=== PATIENT | female | born 1990 | race American Indian/Alaskan Native ===

== ENCOUNTER 2017-09-25 22:04 | Emergency (ER) | payer SELFPAY ==
[2017-09-25 22:59] VITALS: BP 121/85
[2017-09-26] MEDS ORDERED: TORADOL IM ONE (00:43)
== END 2017-09-26 00:15 | disposition left against medical advice (07) ==
LOC: ED 22:04
DX: R10.9 Unspecified abdominal pain (principal); N89.8 Other specified noninflammatory disorders of vagina; Z53.21 Procedure and treatment not carried out due to patient leaving prior to being seen by health care provider

== ENCOUNTER 2017-09-28 18:06 | Emergency (ER) | payer SELFPAY ==
[2017-09-28 20:26] LABS: Basophils # (Auto) 0.1 K/mm3 (0.0-0.1); Basophils % (Auto) 0.8 % (0.0-1.8); Eosinophils # (Auto) 0.3 K/mm3 (0.0-0.4); Eosinophils % (Auto) 3.3 % (0.0-4.3); Hematocrit 39.4 % (30.3-42.9); Hemoglobin 13.3 gm/dl (10.1-14.3); Lymphocytes # (Auto) 3.3 K/mm3 (1.2-5.4); Lymphocytes % (Auto) 32.6 % (13.4-35.0); Mean Corpuscular HGB Conc 34 % (30-34); Mean Corpuscular Hemoglobin 29 pg (28-32); Mean Corpuscular Volume 85 fl (79-97); Monocytes # (Auto) 0.6 K/mm3 (0.0-0.8); Monocytes % (Auto) 6.3 % (0.0-7.3); Platelet Count 349 K/mm3 (140-440); Red Blood Count 4.62 M/mm3 (3.65-5.03); Red Cell Distribution Width 14.1 % (13.2-15.2)
[2017-09-28 20:35] LABS: BUN/Creatinine Ratio 33; Blood Urea Nitrogen 13 mg/dL (7-17); Calcium 8.5 mg/dL (8.4-10.2); Hemolysis Index 23
[2017-09-28 22:30] LABS: Bacteria,Urine 1+ /HPF (Negative); Bilirubin,Urine NEG (Negative); Blood,Urine SM (Negative); Color,Urine Yellow (Yellow); Mucus,Urine 1+ /HPF
[2017-09-29] MEDS ORDERED: ROCEPHIN IM ONE (00:29)
[2017-09-29] MEDS ORDERED: XYLOCAINE 1% MPF 5 mL INFILTRATI ONE (00:29)
[2017-09-29] MEDS ORDERED: TORADOL IM ONE (00:29)
[2017-09-29] MEDS ORDERED: ZITHROMAX PO ONE (00:30)
--- NOTE | 2017-09-29 00:35 | Emergency Department Report ---
ED Female HPI - General Chief complaint: Abdominal Pain Stated complaint: ABD PAIN/BLOODY DISCHARGE Source: patient Mode of arrival: Ambulatory Limitations: No Limitations - History of Present Illness Initial comments: Patient is 26 years old female with no significant past medical history. Patient presented to the ER complaining of pelvic pain and vaginal discharge and painful urination for the last 5 days. The patient denied any fever, nausea or vomiting. No abdominal pain. MD Complaint: vaginal discharge, pelvic pain, possible STD Quality: cramping Consistency: intermittent Associated Symptoms: vaginal discharge - Related Data Previous Rx's Medication Instructions Recorded Last Taken Type HYDROcodone/APAP 10-325 [[place] 1 each PO Q6HR PRN #20 tablet 08/22/13 Unknown Rx 10-325 mg TAB] Sucralfate [Carafate] 1 gm PO Q6HR #10 tablet 07/04/14 Unknown Rx Omeprazole [PriLOSEC] 20 mg PO QDAY #30 capsule. 11/27/14 Unknown Rx Promethazine [Phenergan] 25 mg PO Q6H PRN #25 tablet 11/27/14 Unknown Rx traMADol [Ultram 50 MG tab] 50 mg PO Q6HR PRN #25 tablet 11/27/14 Unknown Rx Allergies Allergy/AdvReac Type Severity Reaction Status Date / Time seafood Allergy Swelling Uncoded 07/04/14 17:19 ED Review of Systems ROS: Stated complaint: ABD PAIN/BLOODY DISCHARGE Other details as noted in HPI Comment: All other systems reviewed and negative Constitutional: denies: chills, fever Respiratory: denies: cough, orthopnea, shortness of breath, SOB with exertion Gastrointestinal: denies: abdominal pain, nausea, vomiting, constipation, hematemesis, melena Genitourinary: urgency. denies: dysuria, frequency, hematuria, discharge, abnormal menses Musculoskeletal: denies: back pain ED Past Medical Hx - Past Medical History Previous Medical History?: Yes Hx Headaches / Migraines: Yes Hx Asthma: Yes Additional medical history: ulcers, anemia. OVARIAN CYST - Surgical History Past Surgical History?: No - Social History Smoking Status: Current Every Day Smoker Substance Use Type: Alcohol - Medications Home Medications: Home Medications Medication Instructions Recorded Confirmed Last Taken Type HYDROcodone/APAP 10-325 [[place] 1 each PO Q6HR PRN #20 tablet 08/22/13 Unknown Rx 10-325 mg TAB] Sucralfate [Carafate] 1 gm PO Q6HR #10 tablet 07/04/14 Unknown Rx Omeprazole [PriLOSEC] 20 mg PO QDAY #30 capsule. 11/27/14 Unknown Rx Promethazine [Phenergan] 25 mg PO Q6H PRN #25 tablet 11/27/14 Unknown Rx traMADol [Ultram 50 MG tab] 50 mg PO Q6HR PRN #25 tablet 11/27/14 Unknown Rx ED Physical Exam - General Limitations: No Limitations General appearance: alert, in no apparent distress - Head Head exam: Present: atraumatic, normocephalic - Eye Eye exam: Present: normal appearance, PERRL - ENT ENT exam: Present: normal exam, normal orophraynx - Neck Neck exam: Present: normal inspection, full ROM. Absent: tenderness, meningismus, lymphadenopathy, thyromegaly - Respiratory Respiratory exam: Present: normal lung sounds bilaterally. Absent: respiratory distress, wheezes, rales, rhonchi, chest wall tenderness, accessory muscle use, decreased breath sounds, prolonged expiratory - Cardiovascular Cardiovascular Exam: Present: regular rate, normal rhythm, normal heart sounds. Absent: bradycardia, tachycardia, irregular rhythm - GI/Abdominal GI/Abdominal exam: Present: soft. Absent: distended, tenderness, guarding, rebound, rigid, normal bowel sounds, diminished bowel sounds, organomegaly, mass , bruit, pulsatile mass, hernia - Speculum exam: Present: other (deferred) - Extremities Exam Extremities exam: Present: normal inspection, full ROM, normal capillary refill. Absent: tenderness, pedal edema, joint swelling, calf tenderness - Back Exam Back exam: Present: normal inspection, full ROM. Absent: CVA tenderness (R), CVA tenderness (L), muscle spasm, paraspinal tenderness - Neurological Exam Neurological exam: Present: alert, oriented X3, CN II-XII intact, normal gait - Skin Skin exam: Present: warm, intact, normal color ED Course Vital Signs 09/28/17 19:48 Temperature 97.9 F Pulse Rate 75 Respiratory 18 Rate Blood Pressure 127/89 O2 Sat by Pulse 100 Oximetry ED Medical Decision Making - Lab Data Result diagrams: 09/28/17 20:12 09/28/17 20:12 Critical care attestation.: If time is entered above; I have spent that time in minutes in the direct care of this critically ill patient, excluding procedure time. ED Disposition Clinical Impression: STD (female), Pelvic pain Disposition: TO HOME OR SELFCARE Is pt being admited?: No Condition: Undetermined Instructions: Abdominal Pain (ED), Sexually Transmitted Diseases (ED) Referrals: WINIFRED RUIZ MD [Primary Care Provider] - 3-5 Days
[2017-09-29 01:52] VITALS: BP 123/60
== END 2017-09-29 02:56 | disposition home or self-care (01) ==
LOC: ED 18:06
DX: A63.8 Other specified predominantly sexually transmitted diseases (principal); F17.200 Nicotine dependence, unspecified, uncomplicated; G43.909 Migraine, unspecified, not intractable, without status migrainosus; J45.909 Unspecified asthma, uncomplicated; Z91.013 Allergy to seafood
CPT/HCPCS: 36415; 80048; 81001; 84703; 85025; 96372; 99283; J0696; J1885

== ENCOUNTER 2018-09-19 16:35 | Emergency (ER) | payer OTHER ==
[2018-09-19 16:43] VITALS: BP 106/62
--- NOTE | 2018-09-19 16:47 | Emergency Department Report ---
Chief Complaint: Head Injury Stated Complaint: HIT IN FACE/OBJECT Time Seen by Provider: 09/19/18 16:42 - HPI History of Present Illness: This is a 27 y.o. female that presents with headache s/p work injury. Patient [place] Reports swelling and pain to forehead. Patient applied ice to area. Admits nausea Denies loc - Exam Vital Signs: Vital Signs 09/19/18 16:42 Temperature 98.7 F Pulse Rate 61 Respiratory 20 Rate Blood Pressure 106/62 O2 Sat by Pulse 100 Oximetry MSE screening note: Focused history and physical exam performed. Due to findings the following was ordered: CT of head ED Disposition for MSE Condition: Stable
[2018-09-19 18:25] LABS: HCG Qualitative,Urine Negative (Negative)
--- NOTE | 2018-09-19 20:53 | Cat Scan Report ---
PROCEDURE: CT HEAD/BRAIN WO CON TECHNIQUE: Computerized tomography of the head was performed without contrast material. CT DOSE LENGTH PRODUCT: 805.4 mGycm HISTORY: headache, s/p work injury COMPARISONS: None . FINDINGS: Skull and scalp: Normal . Paranasal sinuses: Normal . Ventricles and subarachnoid spaces: Normal . Cerebrum: No evidence of hemorrhage, acute infarction or mass . Cerebellum and brainstem: No evidence of hemorrhage, acute infarction or mass . Vasculature: Normal . Other: None . ASPECTS: 10 IMPRESSION: Normal Examination . This document is electronically signed by Cullen Mast MD., September 19 2018 08:50:54 PM ET
--- NOTE | 2018-09-19 23:39 | Emergency Department Report ---
ED Head Trauma HPI - General Chief complaint: Head Injury Stated complaint: HIT IN FACE/OBJECT Time Seen by Provider: 09/19/18 16:42 Source: patient Mode of arrival: Ambulatory Limitations: No Limitations - History of Present Illness Initial comments: Pt is a 27 yo female who presents to the ED with c/o being hit with a construction cone while at work on accident. The patient states that they were throwing the cones out behind the truck and she walked past the truck and got hit in the left forehead by a construction cone. The patient states she did have left frontal facial pain and abrasions to the forehead. The patient states initially she felt nauseous but does not have it anymore. She denies any LOC, vomiting, vision changes, numbness, weakness, or bowel/bladder incontinence. - Related Data Previous Rx's Medication Instructions Recorded Last Taken Type Sucralfate [Carafate] 1 gm PO Q6HR #10 tablet 07/04/14 Unknown Rx Omeprazole [PriLOSEC] 20 mg PO QDAY #30 capsule. 11/27/14 Unknown Rx Ondansetron [Zofran ODT TAB] 4 mg PO Q8HR PRN #14 tab.rapdis 09/29/17 Unknown Rx Benzonatate [Tessalon Perle] 100 mg PO TID PRN #30 capsule 05/26/18 Unknown Rx Cetirizine HCl [Zyrtec] 10 mg PO DAILY #30 tablet 05/26/18 Unknown Rx Fluticasone [Flonase] 1 spray NS QDAY #1 bottle 05/26/18 Unknown Rx Guaifenesin/Dm/Pseudoephedrine 1 each PO BID #14 tablet 05/26/18 Unknown Rx [Capmist Dm Tablet] Ibuprofen [Motrin 800 MG tab] 800 mg PO Q8HR PRN #12 tablet 05/26/18 Unknown Rx Ibuprofen [Motrin] 800 mg PO Q8HR PRN #20 tablet 09/19/18 Unknown Rx Allergies/Adverse reactions: Allergies Allergy/AdvReac Type Severity Reaction Status Date / Time shellfish derived Allergy Swelling Verified 05/26/18 13:09 ED Review of Systems ROS: Stated complaint: HIT IN FACE/OBJECT Other details as noted in HPI Comment: All other systems reviewed and negative ED Past Medical Hx - Past Medical History Hx Headaches / Migraines: Yes Hx Asthma: Yes Additional medical history: ulcers, anemia. OVARIAN CYST - Social History Smoking Status: Never Smoker Substance Use Type: None - Medications Home Medications: Home Medications Medication Instructions Recorded Confirmed Last Taken Type Sucralfate [Carafate] 1 gm PO Q6HR #10 tablet 07/04/14 Unknown Rx Omeprazole [PriLOSEC] 20 mg PO QDAY #30 capsule. 11/27/14 Unknown Rx Ondansetron [Zofran ODT TAB] 4 mg PO Q8HR PRN #14 tab.rapdis 09/29/17 Unknown Rx Benzonatate [Tessalon Perle] 100 mg PO TID PRN #30 capsule 05/26/18 Unknown Rx Cetirizine HCl [Zyrtec] 10 mg PO DAILY #30 tablet 05/26/18 Unknown Rx Fluticasone [Flonase] 1 spray NS QDAY #1 bottle 05/26/18 Unknown Rx Guaifenesin/Dm/Pseudoephedrine 1 each PO BID #14 tablet 05/26/18 Unknown Rx [Capmist Dm Tablet] Ibuprofen [Motrin 800 MG tab] 800 mg PO Q8HR PRN #12 tablet 05/26/18 Unknown Rx Ibuprofen [Motrin] 800 mg PO Q8HR PRN #20 tablet 09/19/18 Unknown Rx ED Physical Exam - General Limitations: No Limitations General appearance: alert, in no apparent distress - Head Head exam: Present: normocephalic, other (three small abrasions to the forehead, small amount of edema to the left forehead, no skin tear or laceration, no crepitus ) - Eye Eye exam: Present: normal appearance, PERRL, EOMI, other (no raccoon eyes). Absent: scleral icterus, conjunctival injection, nystagmus, periorbital swelling, periorbital tenderness Pupils: Present: normal accommodation - ENT ENT exam: Present: mucous membranes moist, other (no baugh signs) - Neck Neck exam: Present: normal inspection, full ROM. Absent: tenderness - Respiratory Respiratory exam: Present: normal lung sounds bilaterally. Absent: respiratory distress, wheezes, rales, rhonchi, stridor, chest wall tenderness, accessory muscle use, decreased breath sounds, prolonged expiratory - Cardiovascular Cardiovascular Exam: Present: regular rate, normal rhythm, normal heart sounds. 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 Absent: motor sensory deficit - Psychiatric Psychiatric exam: Present: normal affect, normal mood - Skin Skin exam: Present: warm, dry ED Course Vital Signs 09/19/18 16:42 Temperature 98.7 F Pulse Rate 61 Respiratory 20 Rate Blood Pressure 106/62 O2 Sat by Pulse 100 Oximetry - Lab Data Lab Results 09/19/18 Range/Units 17:12 Urine HCG, Qual Negative (Negative) - Radiology Data Radiology results: report reviewed PROCEDURE: CT HEAD/BRAIN WO CON TECHNIQUE: Computerized tomography of the head was performed without contrast material. CT DOSE LENGTH PRODUCT: 805.4 mGycm HISTORY: headache, s/p work injury COMPARISONS: None . FINDINGS: Skull and scalp: Normal . Paranasal sinuses: Normal . Ventricles and subarachnoid spaces: Normal . Cerebrum: No evidence of hemorrhage, acute infarction or mass . Cerebellum and brainstem: No evidence of hemorrhage, acute infarction or mass . Vasculature: Normal . Other: None . ASPECTS: 10 IMPRESSION: Normal Examination . This document is electronically signed by Cullen Mast MD., September 19 2018 08:50:54 PM ET - Medical Decision Making Pt is a 27 yo female who presents to the ED with c/o being hit with a construction cone while at work on accident. The patient states that they were throwing the cones out behind the truck and she walked past the truck and got hit in the left forehead by a construction cone. The patient states she did have left frontal facial pain and abrasions to the forehead. The patient states initially she felt nauseous but does not have it anymore. She denies any LOC, vomiting, vision changes, numbness, weakness, or bowel/bladder incontinence. CT of the head with no acute process. no neurological deficit on examination. no laceration or skin tear. Will have pt follow up with PCP in the next 2-3 days. May take motrin for pain. Advised pt to use an ice pack wrapped in a towel for 15 minutes every two hours. Discussed with pt in detail to return to the emergency for any new or worsening symptoms. Critical care attestation.: If time is entered above; I have spent that time in minutes in the direct care of this critically ill patient, excluding procedure time. ED Disposition Clinical Impression: Minor head injury Qualifiers: Encounter type: initial encounter Qualified Code(s): S09.90XA - Unspecified injury of head, initial encounter Disposition: TO HOME OR SELFCARE Is pt being admited?: No Does the pt Need Aspirin: No Condition: Stable Instructions: Minor Head Injury (ED) Additional Instructions: Please follow up with primary care doctor in the next 2-3 days. May take anti- inflammatory for pain and drink plenty of water while taking. Use an ice pack wrapped in a towel for 15 minutes every two hours. Return to the emergency room immediately for any new or worsening symptoms as discussed. Prescriptions: Ibuprofen [Motrin] 800 mg PO Q8HR PRN #20 tablet PRN Reason: Pain, Moderate (4-6) Referrals: MARION TAYLOR MD [Primary Care Provider] - 2-3 Days Time of Disposition: 23:42 Print Language: SPANISH
== END 2018-09-19 23:50 | disposition home or self-care (01) ==
LOC: ED 16:35
DX: S00.81XA Abrasion of other part of head, initial encounter (principal); J45.909 Unspecified asthma, uncomplicated; G43.909 Migraine, unspecified, not intractable, without status migrainosus
CPT/HCPCS: 70450; 81025